=== PATIENT | female | born 1970 | race Caucasian/White ===

== ENCOUNTER 2017-03-28 11:16 | Day surgery (SDC) | payer OTHER ==
[~2017-03-28 11:16] MED LIST: ADULT LOW DOSE81 M1 PO; ADVAIR 250-501 EACH IH; ADVAIR 250/501 DISK IH; ALBUTEROL17 GM IH; ALL DAY ALLERGY10 M2 PO; BACTRIM,SEPT1 TABLET PO; CLARITIN10 M3 PO; COLACE100 MG PO; CYCLOBENZAPRINE10 MG PO; Ecotrin PO; FLEXERIL10 MG PO; GLUCOPHAGE1000 MG PO; GLUCOPHAGE500 MG PO; IBUPROFEN800 MG PO; LISINOPRIL20 MG PO; LITE COAT ASPI325 M1 PO; LYRICA100 MG PO; LYRICA50 MG PO; LYRICA75 MG PO; Lopressor PO; METFORMIN HCL1000 MG PO; METOPROLOL SUCC25 MG PO; METOPROLOL TART25 MG PO; MOBIC7.5 MG PO; OXECTA7.5 MG PO; PANTOPRAZOLE SO40 MG PO; PAXIL10 MG PO; PAXIL20 MG PO; PERCOCET 10/1 TABLET PO; PERCOCET 7.51 TABLET PO; PRAVACHOL20 MG PO; PRAVASTATIN SOD10 MG PO; PRILOSEC20 MG PO; PROAIR HFA8.5 GM IH; Protonix PO; TRICOR145 MG PO; ZANTAC 2525 MG PO
[2017-03-28] MEDS ORDERED: CYMBALTA20 MG PO (11:41)
[2017-03-28 11:59] LABS: POINT-OF-CARE METER ID UU13113694
== END 2017-03-28 12:25 | disposition home or self-care (01) ==
LOC: PAIN 11:16 → SDC 12:15 → PAIN 12:25
PROVIDERS: Anesthesiology Pain Medicine
DX: M47.26 Other spondylosis with radiculopathy, lumbar region (principal); M51.16 Intervertebral disc disorders with radiculopathy, lumbar region; M47.812 Spondylosis without myelopathy or radiculopathy, cervical region; M96.1 Postlaminectomy syndrome, not elsewhere classified; M46.1 Sacroiliitis, not elsewhere classified; I10 Essential (primary) hypertension; E11.9 Type 2 diabetes mellitus without complications; K21.9 Gastro-esophageal reflux disease without esophagitis; F41.8 Other specified anxiety disorders; E78.1 Pure hyperglyceridemia; E66.01 Morbid (severe) obesity due to excess calories; Z68.41 Body mass index [BMI] 40.0-44.9, adult; G47.33 Obstructive sleep apnea (adult) (pediatric); J44.9 Chronic obstructive pulmonary disease, unspecified; M79.7 Fibromyalgia; Z86.73 Personal history of transient ischemic attack (TIA), and cerebral infarction without residual deficits; Z87.891 Personal history of nicotine dependence; Z79.82 Long term (current) use of aspirin; Z79.84 Long term (current) use of oral hypoglycemic drugs; Z79.899 Other long term (current) drug therapy
CPT/HCPCS: 82948; J1030; J2250; J3010

== ENCOUNTER 2017-05-12 13:08 | Day surgery (SDC) | payer OTHER ==
[~2017-05-12] VITALS: Ht 166.4 cm; Wt 108.8 kg
[~2017-05-12 13:08] MED LIST changes: +CYMBALTA20 MG PO; +ZANAFLEX2 M1 PO
[2017-05-12 14:00] LABS: POINT-OF-CARE METER ID UU14174212
== END 2017-05-12 15:30 | disposition home or self-care (01) ==
LOC: PAIN 13:08 → SDC 15:00 → PAIN 15:00
PROVIDERS: Anesthesiology Pain Medicine
DX: M47.26 Other spondylosis with radiculopathy, lumbar region (principal); M51.16 Intervertebral disc disorders with radiculopathy, lumbar region; M79.1 Myalgia; M96.1 Postlaminectomy syndrome, not elsewhere classified; I10 Essential (primary) hypertension; F41.8 Other specified anxiety disorders; K21.9 Gastro-esophageal reflux disease without esophagitis; E66.01 Morbid (severe) obesity due to excess calories; Z68.41 Body mass index [BMI] 40.0-44.9, adult; E11.9 Type 2 diabetes mellitus without complications; J44.9 Chronic obstructive pulmonary disease, unspecified; Z86.73 Personal history of transient ischemic attack (TIA), and cerebral infarction without residual deficits; Z87.891 Personal history of nicotine dependence; Z79.84 Long term (current) use of oral hypoglycemic drugs; Z79.82 Long term (current) use of aspirin; Z79.891 Long term (current) use of opiate analgesic
CPT/HCPCS: 82948; J1030; J2250; J3010; S0020

== ENCOUNTER 2017-05-19 12:52 | Day surgery (SDC) | payer OTHER ==
[2017-05-19 13:53] LABS: POINT-OF-CARE METER ID UU14174212
== END 2017-05-19 15:00 | disposition home or self-care (01) ==
LOC: PAIN 12:52
PROVIDERS: Anesthesiology Pain Medicine
PROC: 3E0T3TZ Introduction of Destructive Agent into Peripheral Nerves and Plexi, Percutaneous Approach (ICD-10-PCS; principal; 2017-05-19)
PROC: BR161ZZ Fluoroscopy of Lumbar Facet Joint(s) using Low Osmolar Contrast (ICD-10-PCS; principal; 2017-05-19)
DX: M47.26 Other spondylosis with radiculopathy, lumbar region (principal); M51.16 Intervertebral disc disorders with radiculopathy, lumbar region; M96.1 Postlaminectomy syndrome, not elsewhere classified; M79.1 Myalgia; M46.1 Sacroiliitis, not elsewhere classified; I10 Essential (primary) hypertension; F41.8 Other specified anxiety disorders; E11.9 Type 2 diabetes mellitus without complications; K21.9 Gastro-esophageal reflux disease without esophagitis; E66.01 Morbid (severe) obesity due to excess calories; G47.33 Obstructive sleep apnea (adult) (pediatric); J43.9 Emphysema, unspecified; Z86.73 Personal history of transient ischemic attack (TIA), and cerebral infarction without residual deficits; Z98.1 Arthrodesis status; Z79.84 Long term (current) use of oral hypoglycemic drugs; Z79.891 Long term (current) use of opiate analgesic; Z87.891 Personal history of nicotine dependence
CPT/HCPCS: 82948; J1030; J2250; J3010; S0020

== ENCOUNTER 2017-10-20 07:27 | Day surgery (SDC) | payer OTHER ==
[~2017-10-20] VITALS: Ht 166.4 cm; Wt 122.9 kg
[~2017-10-20 07:27] MED LIST changes: -CYMBALTA20 MG PO; +CYMBALTA30 MG PO
== END 2017-10-20 09:15 | disposition home or self-care (01) ==
LOC: PAIN 07:27 → SDC 08:00 → PAIN 09:15
PROVIDERS: Anesthesiology Pain Medicine
DX: M47.26 Other spondylosis with radiculopathy, lumbar region (principal); M51.16 Intervertebral disc disorders with radiculopathy, lumbar region; F41.8 Other specified anxiety disorders; K21.9 Gastro-esophageal reflux disease without esophagitis; I10 Essential (primary) hypertension; E11.9 Type 2 diabetes mellitus without complications; G47.33 Obstructive sleep apnea (adult) (pediatric); I69.354 Hemiplegia and hemiparesis following cerebral infarction affecting left non-dominant side; J44.9 Chronic obstructive pulmonary disease, unspecified; Z79.82 Long term (current) use of aspirin; Z79.891 Long term (current) use of opiate analgesic; Z87.891 Personal history of nicotine dependence
CPT/HCPCS: 82948; 93005; J1100; J2250; J3010

== ENCOUNTER 2017-11-14 10:30 | Day surgery (SDC) | payer OTHER ==
[~2017-11-14] VITALS: Ht 165.1 cm; Wt 98.1 kg
== END 2017-11-14 12:05 | disposition home or self-care (01) ==
LOC: PAIN 10:30 → SDC 11:00 → PAIN 11:00
DX: M54.16 Radiculopathy, lumbar region (principal); M51.26 Other intervertebral disc displacement, lumbar region; M47.816 Spondylosis without myelopathy or radiculopathy, lumbar region; M79.1 Myalgia; M96.1 Postlaminectomy syndrome, not elsewhere classified; I10 Essential (primary) hypertension; K21.9 Gastro-esophageal reflux disease without esophagitis; E11.9 Type 2 diabetes mellitus without complications; F41.8 Other specified anxiety disorders; E78.1 Pure hyperglyceridemia; Z79.891 Long term (current) use of opiate analgesic; J43.9 Emphysema, unspecified; E66.9 Obesity, unspecified; Z68.35 Body mass index [BMI] 35.0-35.9, adult; G47.33 Obstructive sleep apnea (adult) (pediatric); E55.9 Vitamin D deficiency, unspecified; Z86.73 Personal history of transient ischemic attack (TIA), and cerebral infarction without residual deficits; Z98.1 Arthrodesis status; Z87.891 Personal history of nicotine dependence; Z79.82 Long term (current) use of aspirin; Z85.44 Personal history of malignant neoplasm of other female genital organs
CPT/HCPCS: J1100; J2250